=== PATIENT | male | born 1960 | race Caucasian/White ===

== ENCOUNTER 2021-07-11 13:55 | Emergency (ER) | payer BC, SELFPAY ==
[2021-07-11 14:11] VITALS: BP 130/78; PULSE 80; RESP 16; TEMP 37; O2SAT 97
--- NOTE | 2021-07-11 14:35 | ED.ALLEREA ---
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 complaint: allergic reaction Onset (ago): hour(s) Exposure: insect bite Symptoms: rash Severity: mild Treatment prior to arrival: epinephrine Previous Allergic Reaction History: prior ED visit(s) and anaphylaxis Related Data Home Medications Medication Instructions Recorded Confirmed linaclotide [Linzess] 145 mcg PO DAILY 07/11/21 07/11/21 Allergies Allergy/AdvReac Type Severity Reaction Status Date / Time No Known Allergies Allergy Unverified 04/12/19 08:41 Review of Systems Review of Systems: All systems reviewed & are unremarkable except as noted in HPI and below [facility] Past Medical History Medical History Anaphylactic reaction Exam Const: General: no acute distress and alert Orientation/consciousness: patient oriented x3 HENMT: Head: normal to inspection Eyes: Conjunctivae: conjunctivae normal Pupils: Equal, round and reactive pupils present EOM: EOMs intact bilaterally Direct Ophthalmoscopy: no photophobia Neck: Neck: normal visual inspection, no lymphadenopathy and no meningeal signs Chest: Chest palpation & inspection: normal inspection of the chest Resp: Effort & Inspection: normal respiratory effort Cardio: Rate: regular rate Rhythm: regular rhythm GI: GI Palp: Yes Soft to palpation Percussion: Yes normal to percussion Back/Spine/Pelvis: Back: no CVA tenderness Skin: General skin exam: normal color Other: local skin reaction right upper chest area approximately 2cm in diameter Neuro: General: patient oriented x3, moves all extremities, no meningeal signs and no focal motor deficits Extrem: General: normal to inspection and no pedal edema Psych: Affect: normal affect Attitude: cooperative Course Course Emergency Course: patient doing well no reaction no swelling no shortness of breath no audible wheezing will give the patient 80mg of IM Depo-Medrol. Vital Signs Vital signs: Vital Signs Temperature 37.0 C 07/11/21 14:11 Pulse Rate 80 07/11/21 14:11 Respiratory Rate 16 07/11/21 14:11 Blood Pressure 130/78 07/11/21 14:11 Pulse Oximetry 97 07/11/21 14:11 Temperature 37.0 C 07/11/21 14:11 Pulse Rate 80 07/11/21 14:11 Respiratory Rate 16 07/11/21 14:11 Blood Pressure 130/78 07/11/21 14:11 Pulse Oximetry 97 07/11/21 14:11 Critical Care Time Critical Care Time Critical Care Time: No Discharge Plan Discharge Clinical Impression: Allergic reaction Qualifiers: Encounter type: initial encounter Qualified Code(s): T78.40XA - Allergy, unspecified, initial encounter Patient Disposition: Home, Self-Care Condition: Stable Instructions: Antibiotic Form, Insect Bite or Sting (ED) Additional Instructions: Take medicine as prescribed follow primary care physician if symptoms persist or worsen. Prescriptions: New methylprednisolone [Medrol (Barry)] 4 mg tablets,dose pack See Rx Instructions .ROUTE .COMPLEX Qty: 21 RF: 0 famotidine [Pepcid] 40 mg tablet 40 mg PO DAILY Qty: 7 RF: 0 epinephrine [EpiPen 2-Barry] 0.3 mg/0.3 mL auto-injector 0.3 mg IM Q5-15M PRN (Reason: anaphylaxis) Qty: 2 RF: 0 No Action Linzess 145 mcg capsule 145 mcg PO DAILY RF: 0 Follow-up/Referrals: Harms*
[2021-07-11] MEDS: methylPREDNISolone ACETATE 40 MG/ML VIAL 80 MG IM (14:50)
[2021-07-11 15:18] VITALS: BP 129/94; PULSE 71; RESP 16; O2SAT 97
== END 2021-07-11 15:18 | disposition home or self-care (01) ==
PROVIDERS: Emergency Provider Emergency Medicine; PCP Family Medicine
DX: T78.40XA Allergy, unspecified, initial encounter (principal)
CPT/HCPCS: 96372; 99283; J1030

== ENCOUNTER 2024-09-07 07:59 | Emergency (ER) | payer BC, SELFPAY ==
[2024-09-07 07:59] VITALS: BP 158/87; PULSE 76; RESP 20; TEMP 36.2; O2SAT 98
--- NOTE | 2024-09-07 08:05 | ED.WOUNDLAC ---
HPI - Wound/Laceration General Chief Complaint: Wound/Laceration Stated Complaint: finger laceration Source: patient Mode of arrival: ambulatory Limitations: no limitations History of Present Illness HPI narrative: Patient is a 64-year-old male with a left thumb laceration done prior to arrival. He was cutting a zip tie plastic strap and the knife cut into his left thumb. He came due to bleeding. Tetanus shot up-to-date. Onset (ago): minute(s) (30) Location: other ( Left thumb) Place: outdoors Patient tetanus UTD: Yes Context: accidental Associated symptoms: none Treatments prior to arrival: bandage Related Data Home Medications Medication Instructions Recorded Confirmed linaclotide 145 mcg capsule 145 mcg PO DAILY 07/11/21 07/11/21 (Linzess) Allergies Allergy/AdvReac Type Severity Reaction Status Date / Time bee venom protein (honey bee) Allergy Anaphylaxis Verified 09/07/24 08:09 [bees] Review of Systems Review of Systems: All systems reviewed & are unremarkable except as noted in HPI and below Constitutional: Constitutional: Reports no additional constitutional complaints Eyes: Eyes: Reports no additional eye complaints ENT: Reports system reviewed and no additional complaints, except as documented Cardiovascular: Cardiovascular: Reports no additional cardiovascular complaints Respiratory: Respiratory: Reports no additional respiratory complaints Gastrointestinal: Gastrointestinal: Reports no additional gastrointestinal complaints Genitourinary: Genitourinary: Reports no additional male genitourinary complaints Musculoskeletal: Musculoskeletal: Reports no additional musculoskeletal complaints Integumentary/Breasts: Skin/Breast: Reports system reviewed and no additional complaints, except as docu Neurologic: Reports system reviewed and no additional complaints, except as documented Psychiatric: Psychiatric: Reports no additional psychiatric complaints Endocrine: Endocrine: Reports no additional endocrine complaints Hematologic/Lymphatic: Hematologic/Lymphatic: Reports no additional hematologic/lymphatic complaints Allergic/Immunologic: Allergic/Immunologic: Reports no additional allergic/immunologic complaints PMFSH Past Medical History Medical History Anaphylactic reaction Exam Const: General: healthy appearing Nutritional Appearance: well nourished Orientation/consciousness: patient oriented x3 HENMT: Head: normal to inspection Ears: external ears normal Face/Nose/Sinus: Normal external nose present Eyes: Conjunctivae: conjunctivae normal Pupils: Equal, round and reactive pupils present EOM: EOMs intact bilaterally Neck: Neck: normal visual inspection Chest: Chest palpation & inspection: normal inspection of the chest Resp: Effort & Inspection: normal respiratory effort and not labored Auscultation: clear to auscultation bilaterally and no crackles Cardio: Rate: regular rate Rhythm: regular rhythm Heart sounds: no murmurs GI: Inspection: non-distended GI Palp: Yes Soft to palpation and No Tenderness to palpation present (GI) Auscultation: normal bowel sounds Back/Spine/Pelvis: Back: no CVA tenderness Skin: General skin exam: normal color Rashes: no rashes Wounds: wound noted Other: left thumb extensor surface has a pollen 0.5 cm laceration linear with bleeding Neuro: General: patient oriented x3 Cranial nerves: Yes Nystagmus not present Speech: normal speech Extrem: General: normal to inspection Psych: Mental Status: mental status grossly normal Affect: normal affect Attitude: cooperative Procedures Other Procedure Procedure 1: Other Procedure: left thumb linear laceration repair with Dermabond, area cleaned with chlorhexidine, Dermabond placed on top of the lesion, patient tolerated procedure well and no complications MDM - Wound/Laceration MDM Narrative Medical decision making narrative: patient is a 64-year-old male with a left thumb laceration. This was an accident. We will Dermabond the area. No tetanus shot needed. No antibiotics needed. Light bandage. Discharge Plan Discharge Clinical Impression: Laceration of thumb Patient Disposition: Home, Self-Care Condition: Stable Instructions: Laceration (ED), Skin Adhesive Care (ED) Prescriptions: No Action Linzess 145 mcg capsule 145 mcg PO DAILY methylprednisolone [Medrol (Barry)] 4 mg tablets,dose pack See Rx Instructions .ROUTE .COMPLEX Qty: 21 0RF Rx Instructions: orally per package directions famotidine [Pepcid] 40 mg tablet 40 mg PO DAILY Qty: 7 0RF epinephrine [EpiPen 2-Barry] 0.3 mg/0.3 mL auto-injector 0.3 mg IM Q5-15M PRN (Reason: anaphylaxis) Qty: 2 0RF Rx Instructions: do not exceed 3 doses per episode Follow-up/Referrals: Harms,Adam Milan M.D. [Primary Care Provider] - Time of Disposition: 08:11
== END 2024-09-07 08:20 | disposition home or self-care (01) ==
LOC: CHSED 08:19
PROVIDERS: Emergency Provider Emergency Medicine; PCP Family Medicine
DX: S61.012A Laceration without foreign body of left thumb without damage to nail, initial encounter (principal); W26.8XXA Contact with other sharp object(s), not elsewhere classified, initial encounter
CPT/HCPCS: 12001; 99282